=== PATIENT | male | born 1995 | race Caucasian/White ===

== ENCOUNTER → 2020-08-28 18:10 | Outpatient (BNVA) | payer OTHER, SELFPAY | PROVIDERS: Visit Provider Nurse Practitioner Family | DX: Z20.828 Contact with and (suspected) exposure to other viral communicable diseases (principal) | CPT/HCPCS: 87635 ==

== ENCOUNTER 2024-10-04 09:33 | Emergency (ER) | payer OTHER, SELFPAY ==
[2024-10-04 10:14] VITALS: BP 175/79; PULSE 66; RESP 17; TEMP 36.9; O2SAT 98
--- NOTE | 2024-10-04 10:20 | W.ED.ANIMALB ---
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 Through jeans but there is a small laceration on his left buttock. There is no bleeding. Superficial wound. No other wounds. Related Data Home Medications Medication Instructions Recorded Confirmed cetirizine 10 mg tablet (24Hour 10 mg PO DAILY 08/28/20 08/28/20 Allergy) Previous Rx's Medication Instructions Recorded ondansetron HCl 4 mg tablet 4 mg PO Q8H #10 tabs 08/28/20 (Zofran) amoxicillin 875 mg-potassium 1 tab PO BID 7 days #14 tabs 10/04/24 clavulanate 125 mg tablet Allergies Allergy/AdvReac Type Severity Reaction Status Date / Time No Known Allergies Allergy Unverified 08/28/20 13:17 Review of Systems Narrative: Constitutional symptoms: Negative except as documented in HPI. Skin symptoms: Negative except as documented in HPI. Eye symptoms: Negative except as documented in HPI. ENMT symptoms: Negative except as documented in HPI. Respiratory symptoms: Negative except as documented in HPI. Cardiovascular symptoms: Negative except as documented in HPI. Gastrointestinal symptoms: Negative except as documented in HPI. Genitourinary symptoms: Negative except as documented in HPI. Musculoskeletal symptoms: Negative except as documented in HPI. Neurologic symptoms: Negative except as documented in HPI. Psychiatric symptoms: Negative except as documented in HPI. Endocrine symptoms: Negative except as documented in HPI. Physical Exam Narrative: EXAM NARRATIVE: General: Alert, no acute distress. Skin: warm and dry, 2 cm superficial laceration to the left buttock. No bleeding. Head: Normocephalic Neck: Trachea midline Eye: Extraocular movements are intact. Ears, nose, mouth and throat: Oral mucosa moist Respiratory: Respirations are non-labored Musculoskeletal: Normal ROM Neurological: Alert and oriented, No focal neurological deficit observed. Psychiatric: Cooperative, appropriate mood & affect. Course Vital Signs: Vital signs: Vital Signs Temperature 98.4 F 10/04/24 10:14 Pulse Rate 66 10/04/24 10:14 Respiratory Rate 17 10/04/24 10:14 Blood Pressure 175/79 10/04/24 10:14 Pulse Oximetry 98 10/04/24 10:14 Oxygen Delivery Me thod Room Air 10/04/24 10:14 MDM - Animal Bite Medical Decision Making Assessment and plan: Dog bite Rabies vaccinations ?Tetanus was given and rabies vaccination series was initiated. - Discharged home - Discussed plan with patient. Answered any questions. - Evaluation and treatment of this problem were appropriate in the emergency setting. No radiology studies performed this visit Discharge Plan Discharge Patient Disposition: Home Clinical Impression: Dog bite, Rabies, need for prophylactic vaccination against Condition: Stable Prescriptions: New amoxicillin-pot clavulanate 875-125 mg tablet 1 tab PO BID 7 Days Qty: 14 0RF No Action cetirizine [24Hour Allergy] 10 mg tablet 10 mg PO DAILY ondansetron HCl [Zofran] 4 mg tablet 4 mg PO Q8H Qty: 10 0RF Discharge Orders: Discharge ED (Routine); Ordered 10/04/24 Ordered By: Ligia Esposito Discharge Diet: Usual diet Discharge Activity: Resume usual activity Patient Instructions: Rabies Vaccine (By injection), Rabies Immune Globulin (By injection), Animal Bite (ED), Opioid Safety, Pain Management Activity Restrictions/Additional Instructions: Please return for rabies series as instructed and the paperwork you were given. Thank you for choosing [facility] for your healthcare needs today. Please realize this is an emergency room and that we are providing you with a medical screening exam and this may not be complete and all inclusive of all the testing and or work up that you may need to determine your ailment or severity of your illness. You have been screened and evaluated and felt safe for discharge. Health conditions do change or evolve sometimes and as such it is important that you follow up with your Primary Doctor to be re checked, 3-5 days is a general good time frame for follow up. You are always welcome to return to the ED for re assessment if your symptoms are worsening or you have new concerns Coding Level of Care Code ED Sdv Pilot/Navigator/Dds Operator for Eloise Cole
[2024-10-04] MEDS: tetanus-dipt-pertussis 0.5 mL SDV IM (10:30)
[2024-10-04] MEDS: LORazepam 2 mg/mL INJ 1 mL IM (10:32)
[2024-10-04] MEDS: rabies vaccine 2.5 unit SDV IM (11:27)
[2024-10-04] MEDS: rabies IG 300 unit/mL SDV 1 mL 1620 UNIT IM (11:29)
[2024-10-04 11:34] VITALS: BP 155/81; PULSE 72; O2SAT 99
== END 2024-10-04 11:36 | disposition home or self-care (01) ==
PROVIDERS: Emergency Provider Emergency Medicine
DX: S31.825A Open bite of left buttock, initial encounter (principal); W54.0XXA Bitten by dog, initial encounter; Z29.14 Encounter for prophylactic rabies immune globulin; Z20.3 Contact with and (suspected) exposure to rabies; Z23 Encounter for immunization
CPT/HCPCS: 90375; 90471; 90675; 90715; 96372; 99284; J2060

== ENCOUNTER 2024-10-20 10:00 | Oncology outpatient (recurring) (ONCR) | payer OTHER, SELFPAY ==
[2024-10-09] MEDS: rabies vaccine 2.5 unit SDV IM (15:57)
== END 2024-10-28 23:59 | disposition home or self-care (01) ==
PROVIDERS: Visit Provider Emergency Medicine
DX: Z53.9 Procedure and treatment not carried out, unspecified reason
CPT/HCPCS: 90471; 90675

== ENCOUNTER → 2024-12-27 08:45 | Outpatient (BNVA) | payer OTHER, SELFPAY | PROVIDERS: Visit Provider Emergency Medicine | DX: R50.9 Fever, unspecified (principal); J10.1 Influenza due to other identified influenza virus with other respiratory manifestations | CPT/HCPCS: 87400 ==